=== PATIENT | female | born 1955 | race Caucasian/White ===

== ENCOUNTER → 2019-05-30 | Outpatient (CLI) | payer MEDICARE, BC ==
[~2019-05-30] MED LIST: ASPI81TA45 PO; ATOR10TA9 PO; CARV6.252 PO; INSU100V8 SQ; LOSA25TA25 PO; METF500T17 PO; SOTA80TA18 PO; WARF-36 PO
[2019-05-30 17:43] LABS: INTERNATIONAL NORMALIZED RATIO 5.02 (0.93-1.1); PROTHROMBIN TIME 49.5 Seconds (9.6-11.5)
== END | disposition home or self-care (01) ==
LOC: LAB 16:48
PROVIDERS: ATTEND Internal Medicine Cardiovascular Disease
DX: I48.0 Paroxysmal atrial fibrillation (principal); Z79.01 Long term (current) use of anticoagulants
CPT/HCPCS: 36415; 85610

== ENCOUNTER 2019-06-22 16:45 | Outpatient (CLI) | payer MEDICARE, BC ==
[2019-06-22 18:28] LABS: PROTHROMBIN TIME 50.7 Seconds (9.6-11.5)
[2019-06-22 18:29] LABS: INTERNATIONAL NORMALIZED RATIO 5.14 (0.93-1.1)
== END 2019-06-22 23:59 | disposition home or self-care (01) ==
LOC: LAB 16:45
PROVIDERS: ATTEND Internal Medicine Cardiovascular Disease
DX: I48.0 Paroxysmal atrial fibrillation (principal); Z79.01 Long term (current) use of anticoagulants
CPT/HCPCS: 36415; 85610

== ENCOUNTER → 2019-07-23 | Outpatient (CLI) | payer MEDICARE, BC ==
[2019-07-23 16:05] LABS: INTERNATIONAL NORMALIZED RATIO 1.19 (0.93-1.1); PROTHROMBIN TIME 12.6 Seconds (9.6-11.5)
== END | disposition home or self-care (01) ==
LOC: LAB 15:30
PROVIDERS: ATTEND Internal Medicine Cardiovascular Disease
DX: I48.0 Paroxysmal atrial fibrillation (principal); Z79.01 Long term (current) use of anticoagulants
CPT/HCPCS: 36415; 85610

== ENCOUNTER 2019-10-15 10:22 | Day surgery (SDC) | payer BC, MEDICARE | END 2019-10-15 11:26 | disposition home or self-care (01) | LOC: CACL 10:22 | PROVIDERS: ATTEND Internal Medicine Cardiovascular Disease | DX: I48.91 Unspecified atrial fibrillation (principal); Z53.8 Procedure and treatment not carried out for other reasons; E11.9 Type 2 diabetes mellitus without complications; E66.9 Obesity, unspecified; Z68.41 Body mass index [BMI] 40.0-44.9, adult; Z79.82 Long term (current) use of aspirin; Z79.01 Long term (current) use of anticoagulants; Z79.4 Long term (current) use of insulin; Z79.899 Other long term (current) drug therapy; Z88.2 Allergy status to sulfonamides; Z83.3 Family history of diabetes mellitus | CPT/HCPCS: 93005 ==

== ENCOUNTER → 2021-02-04 | Outpatient (CLI) | payer MEDICARE | END | disposition home or self-care (01) | LOC: CVU 14:48 | PROVIDERS: ATTEND Internal Medicine Cardiovascular Disease | DX: I37.1 Nonrheumatic pulmonary valve insufficiency (principal); I11.9 Hypertensive heart disease without heart failure; E11.9 Type 2 diabetes mellitus without complications; I48.91 Unspecified atrial fibrillation | CPT/HCPCS: C8929; Q9957 ==